=== PATIENT | female | born 1945 | race Caucasian/White ===

== ENCOUNTER → 2016-07-21 | Outpatient (CLI) | payer MEDICARE, BC ==
[~2016-07-21] MED LIST: ARIP2 PO; BACT2OIN TOPICAL; DULO20 PO; FURO20 PO; LEVA500T PO; LISI-357 PO; METH2.5 PO; MS C15TA7 PO; RANO500 PO; VALT500T PO; WARF3 PO
--- NOTE | 2016-07-24 10:10 | RSPPFT ---
DATE OF PROCEDURE: 07/21/16 COMMENTS: Spirometry with FVC of 2.4 at 88% of predicted, FEV1 of 1.7 at 90%, FEV1/FVC ratio is normal. Flow is decreased at FEF 25, FEF 50, FEF 75 and FEF 25-75. There is no response after bronchodilator treatment. Lung volumes show residual volume is increased. TLC is increased. Diffusion capacity is normal. Flow volume loop indicates terminal airways obstruction. IMPRESSION: 1. Mild small airways obstructive lung disease. 2. No response after bronchodilator treatment. 3. Lung volumes show hyperinflation. 4. Normal diffusion capacity.
== END ==
LOC: HRSP 08:53
PROVIDERS: ATTEND Specialist
DX: R06.00 Dyspnea, unspecified (principal)
CPT/HCPCS: 94060; 94726; 94729